=== PATIENT | male | born 1990 | race Caucasian/White ===

== ENCOUNTER 2017-03-28 15:36 | Emergency (ER) | payer MEDICAID ==
[~2017-03-28] VITALS: Ht 177.8 cm; Wt 104.0 kg
[~2017-03-28 15:36] MED LIST: PHEN51CR RC
[2017-03-28 15:52] VITALS: BP 122/87
== END 2017-03-28 19:14 | disposition home or self-care (01) ==
LOC: ER 18:14
DX: K64.4 Residual hemorrhoidal skin tags (principal)
CPT/HCPCS: 82270; 99283